=== PATIENT | male | born 1940 | race Two or more races ===

== ENCOUNTER 2022-11-21 07:28 | Day surgery (SDC) | payer OTHER ==
[~2022-11-21] VITALS: Ht 162.6 cm; Wt 86.2 kg
[2022-11-21] VITALS (12 sets, daily range): BP systolic 111–143; BP diastolic 67–84
[~2022-11-21 07:28] MED LIST: AMLO-496 PO; ASPI-498 PO; ATOR40TA52 PO; CHOL100079 OR; CINN500C7 PO; DOCU-80 PO; LISI-707 PO; METO25TA93 PO; MULT-775 OR; NITR0.4S29 SL; TAMS0.4C36 PO
[2022-11-21] MEDS ORDERED: IODIXANOL 320MG/ML 100ML BTL IV ONE ×2 (07:42→08:30)
[2022-11-21] MEDS ORDERED: LIDOCAINE 2%HCL (LOCAL ANESTH.) INJ 20ML MDV ONE (07:42)
[2022-11-21] MEDS ORDERED: fentaNYL CITRATE 100 MCG/2 ML VL ONE (08:06)
[2022-11-21] MEDS ORDERED: HEPARIN SODIUM (PORCINE) 5000 UNITS/ML 1ML VIAL ONE (08:06)
[2022-11-21] MEDS ORDERED: ANGIOMAX 250 MG VIAL IV ONE (08:06)
[2022-11-21] MEDS ORDERED: VERAPAMIL 2.5MG/ML INJ 2ML VIAL IV ONE (08:06)
[2022-11-21] MEDS ORDERED: MIDAZOLAM HCL 2MG/2ML 2ml VIAL (1mg/ml) ONE (08:07)
[2022-11-21] MEDS ORDERED: SODIUM CHL 0.9% 50 ML ONE ×2 (08:07→08:09)
[2022-11-21] MEDS ORDERED: NITROGLYCERIN 5MG/ML 10ML VIAL IV ONE (08:09)
[2022-11-21] MEDS ORDERED: ASPirin 325 MG TAB ONE (09:01)
[2022-11-21] MEDS ORDERED: TICAGRELOR 90 MG TAB ONE (09:01)
== END 2022-11-21 12:47 | disposition home or self-care (01) ==
LOC: CATH 07:28
PROVIDERS: ATTEND Internal Medicine Cardiovascular Disease
DX: I25.10 Atherosclerotic heart disease of native coronary artery without angina pectoris (principal); R94.39 Abnormal result of other cardiovascular function study; Z20.822 Contact with and (suspected) exposure to COVID-19; I10 Essential (primary) hypertension; E78.5 Hyperlipidemia, unspecified; Z79.899 Other long term (current) drug therapy; N40.0 Benign prostatic hyperplasia without lower urinary tract symptoms; Z87.891 Personal history of nicotine dependence
CPT/HCPCS: 93458; C1769; C1887; C9600; J0583; J1644; J2250; J3010; J3490; Q9967; U0003

== ENCOUNTER 2025-05-17 09:55 | Inpatient (IN) | payer OTHER ==
[~2025-05-17] VITALS: Ht 165.1 cm; Wt 87.3 kg
[2025-05-17] VITALS (8 sets, daily range): BP systolic 97–149; BP diastolic 67–81; PULSE 60–74; RESP 14–19; TEMP 97–98; O2SAT 94–98
[~2025-05-17 09:55] MED LIST changes: -AMLO-496 PO; +AMLO1TAB23 PO; -TAMS0.4C36 PO; +TAMS0.4C39 PO
[2025-05-17] MEDS: IODIXANOL 320MG/ML 100ML BTL IV ONE ×3 (12:02→18:13)
[2025-05-17] MEDS: HEPARIN IN NS 1000Units/500mL 1,500 ML ONE ×2 (12:02→13:13)
[2025-05-17] MEDS: LIDOCAINE 2%HCL (LOCAL ANESTH.) INJ 20ML MDV ONE (13:08)
[2025-05-17] MEDS: fentaNYL CITRATE 100 MCG/2 ML VL ONE ×2 (13:08→17:30)
[2025-05-17] MEDS: MIDAZOLAM HCL 2MG/2ML 2ml VIAL (1mg/ml) ONE ×2 (13:08→17:30)
[2025-05-17] MEDS: SODIUM CHL 0.9% 50 ML ONE ×2 (15:37→16:14)
[2025-05-17] MEDS: ANGIOMAX 250 MG VIAL IV ONE ×2 (15:37→16:14)
[2025-05-17] MEDS: CLOPIDOGREL BISULFATE 75 MG TAB ONE (19:04)
--- NOTE | 2025-05-17 20:17 | DVHOP2 ---
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 These include but are not limited to complications of anesthesia, postoperative infection, incomplete relief of symptoms, recurrence of symptoms, damage to blood vessels, nerves and tendons, deep venous thrombosis, pulmonary embolism and possible need for repeat surgery in the future. Complications: No complications Findings: Occlusion of right superficial femoral artery. 99% stenosis of the left iliac. Significant stenosis of left superficial femoral artery. Successful angioplasty and stenting of superficial femoral artery of the right lower extremity. Indications for Surgery: Claudication Name of Procedure Performed Angiographic evaluation of the lower extremities. PEDAL ASSEMBLER and stenting of chronically occluded right superficial femoral artery. Procedure Details Procedure Details: Prior full informed consent obtained the patient was prepped and draped in usual fashion followed by placement of a six Tristanian sheath into the left femoral artery under fluoroscopic and ultrasound guidance. We then placed a rim catheter after performing angiography of the left iliac and superficial femoral artery. We placed a advantage wire into the aorta from this sheath and placed a destination sheath seven Tristanian in size after obtaining runoff contralaterally of the right iliac and lower extremity. We then proceeded with angioplasty as will be delineated. Angiographic evaluation reveals severe stenosis of the left mid external iliac. Severe stenosis of the proximal left superficial femoral artery of about 95+%. Flow from the profunda to the distal SFA of the left lower extremity. There was 100% stenosis of the right superficial femoral artery with reconstitution of flow via collaterals from the right profunda into the distal superficial femoral artery above Theo's canal. Single-vessel runoff from popliteal tibioperoneal trunk and peroneal artery to the ankle. Occluded anterior and posterior tibial arteries. With a rim catheter in place we placed an advantage wire into the profunda and subsequently placed a seven Tristanian destination sheath in the common femoral artery contralaterally. We then placed several wires and catheters in an attempt to open the right superficial femoral artery. A Terumo 035 and 018 angled and straight Navicross catheters were used with several different wires including Prolia 12 and Confianza wires as well as 018 V18 wires. We finally obtained access into the distal cap after breaking through with a Confianza wire. We then placed an 014 choice PT extra-support wire and placed a chocolate balloon and dilated proximal to distal. We were then able to pass an 035 soft angled glide into the distal popliteal of the right lower extremity breaking thr ough the distal cap of the occluded SFA. We then stented with a seven by 120 [place] scientific self expanding stent. Proximal to that in the proximal superficial femoral artery we placed a seven by one hundred cm stent. We then placed a7 x 40 [place] scientific self expanding stent at this level. We post dilated with a7 mm x 100 mm balloon distally and proximally. There was notably increased flow without thrombus formation and/or dissection. There was brisk flow to the ankle. Patient tolerated the procedure well there were no complications. An Angio-Seal device was used to close the left femoral artery. A staged procedure will be performed of the left iliac and lower extremity within 2-3 weeks. 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 Severe peripheral vascular disease involving the left iliac and left superficial femoral artery as well. Recommendations: A staged procedure in the future for the left iliac and superficial femoral artery. Condition Good Disposition Still a Patient Date of Service: May 17, 2025 Billing Provider: HAZEL JEFFREY Sr., MD Cardiology Common Codes: [id number] INP/OBS CARE (High) Peripheral Add ons: [id number] AND ANGIOPLASTY, [id number]-KJFAVUM STENT W /ANGPLASTY HAZEL JEFFREY Sr., MD May 17, 2025 20:17
[2025-05-17] MEDS ORDERED: HYDROcodone-ACET 5/325MG TAB PO PRN (20:30)
[2025-05-18] VITALS (7 sets, daily range): BP systolic 117–144; BP diastolic 72–85; PULSE 70–83; RESP 16–18; TEMP 36.9; O2SAT 96–98
[2025-05-18] MEDS: CLOPIDOGREL BISULFATE 75 MG TAB PO SCH (09:29)
--- NOTE | 2025-05-18 12:12 | DVHPN2 ---
Consult Progress Note Subjective Other Systems: Patient in atrial fibrillation on phototypesetting equipment monitor Denies any cardiac symptoms Objective vital signs Vital Sign Date Time Temp Pulse Resp B/P (MAP) Pulse Ox O2 Delivery O2 Flow Rate FiO2 05/18/25 09:56 98.6 73 18 117/82 (94) 97 98.6 05/18/25 08:00 Room Air* 0 21 Total Intake and Output 05/17/25 05/17/25 05/18/25 15:00 23:00 07:00 Intake Total 0 ml Balance 0 ml medications Current Medications Medications Dose Ordered Sig/Lane Route Start Time Stop Time Status Last Admin Dose Admin Clopidogrel Bisulfate 75 mg DAILY PO 05/18/25 10:00 05/18/25 09:29 75 MG Aspirin 81 mg DAILY PO 05/18/25 10:00 05/18/25 09:29 81 MG Acetaminophen/ Hydrocodone Bitart 1 tab Q4HPRN PRN PO 05/17/25 20:30 Examination: GENERAL:Normal, LUNGS:Normal, CVS:Normal, NEURO:Normal Problem List/Assessment/Plan Problem List/Assessment/Plan Severe peripheral vascular disease s/p PTCA and stenting of chronically occluded right superficial femoral artery Coronary artery disease s/p PTCA x 1 SILVIA Atrial fibrillation, ?Newly diagnosed Hypertension Dyslipidemia Hypokalemia BPH Plan/recommendations (Dr. Jeffrey): Case discussed with . The patient underwent a peripheral angiogram with PRODUCTION CONTROL EXPEDITER and stenting of a chronically occluded right superficial femoral artery. Left groin incision site with a notable bruise, but no active bleeding or hematoma noted. During exam, patient noted to have irregular heart beat. A twelve lead electrocardiogram was obtained and revealed atrial fibrillation with controlled rate. The patient denies any previous history of arrhythmias. Given recent stent placement and new onset arrhythmia, we will recommend for the patient to continue with Plavix and initiate Eliquis. [id number] VASc score: 4 points, HAS-BLED score: 2 points. Continue with lipid-lowering agent and beta- meron. The patient will follow up with xm1 tank driver for a staged procedure involving the left iliac and superficial femoral artery. There is no further inpatient cardiac workup indicated at this time. Patient to follow up with Cardiology in the outpatient setting within 1-2 weeks post discharge. Thank you for allowing us to care for this patient. Please call with any questions or concerns. This medical document was created using an electronic medical record system with voice recognition software and computerized dictation system. Although this document has been carefully reviewed, there might still be some phonetic and typographical errors. Occasional wrong-word or ``sound-alike substitutions may have occurred due to the inherent limitations of voice recognition software. These areas are purely typographical due to imperfections of the software programs and do not reflect any compromise in the patient's medical care. Please read the chart carefully and recognize, using context, where these substitutions have occurred. Plan discussed with: Patient Date of Service: May 18, 2025 Billing Provider: WENDY MCKAY Common Visit Codes: [id number] INP/OBS CARE(HIGH) WENDY MCKAY May 18, 2025 12:12
[2025-05-18 13:33] LABS: Hematocrit 45.2 % (41.0-53.0); Hemoglobin 15.5 g/dL (13.5-17.5); Mean Corpuscular Hemoglobin 30.5 pg (28.0-32.0); Mean Corpuscular Volume 88.6 fL (80.0-100.0); Nucleated Red Blood Cells % 0.1 %
[2025-05-18 13:39] LABS: Anion Gap 10 (5-15); Carbon Dioxide 25 mmol/L (20-31); Chloride 101 mmol/L (98-107); Sodium 136 mmol/L (136-145)
[2025-05-18 13:40] LABS: Calcium 9.2 mg/dL (8.7-10.4)
[2025-05-18 13:42] LABS: Potassium 3.4 mmol/L (3.5-5.1)
[2025-05-18 13:45] LABS: BUN/Creatinine Ratio 11.3 (10.0-20.0); Blood Urea Nitrogen 12 mg/dL (9-23); Glucose 143 mg/dL (74-106); Magnesium 1.9 mg/dL (1.6-2.6)
[2025-05-18] MEDS: POTASSIUM CHL 20 Meq TABLET PO ONE (18:28)
--- NOTE | 2025-05-18 19:02 | DVHHP2 ---
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 Subsequently patient is admitted and hospitalist is consulted for management while he is in the hospital. Currently patient is stable postop. Denies any pain. Other review of systems reviewed normal. Cardiovascular: AFIB, HTN, hyperipidemia Renal/: Benign prostatic enlarg. Past Surgical History: None Family History: Hypertension Lives: with Family Review of Systems Review of Systems No chest pain or shortness for breath. No fevers chills or sweats. Other review of systems reviewed normal Allergies: Coded Allergies: NO KNOWN ALLERGIES (Unverified , 05/12/25) Medications Current Medications Medications Dose Ordered Sig/Lane Route Start Time Stop Time Status Last Admin Dose Admin Clopidogrel Bisulfate 75 mg DAILY PO 05/18/25 10:00 05/18/25 09:29 75 MG Acetaminophen/ Hydrocodone Bitart 1 tab Q4HPRN PRN PO 05/17/25 20:30 Apixaban 5 mg BID PO 05/18/25 22:00 Atorvastatin Calcium 40 mg HS PO 05/18/25 22:00 Metoprolol Succinate 25 mg DAILY PO 05/19/25 10:00 Exam Vital Signs Vital Signs Date Time Temp Pulse Resp B/P (MAP) Pulse Ox O2 Delivery O2 Flow Rate FiO2 05/18/25 18:07 36.9 05/18/25 17:00 83 18 127/72 (90) 97 05/18/25 08:00 Room Air* 0 21 General Appearance: Alert, Oriented X3, No acute distress Cardiovascular: Regular rate, Normal S1, Normal S2, No murmurs Abdominal: Normal bowel sounds, Soft, No tenderness Extremities: No clubbing, No edema, Normal pulses Neuro: Normal gait, Normal speech Psych/Mental Status: Mood NL Labs/Xrays Labs Test 05/18/25 13:20 Range/Units White Blood Count 12.0 H 4.4-10.8 10^3/uL Red Blood Count 5.10 4.5-5.90 10^6/uL Hemoglobin 15.5 13.5-17.5 g/dL Hematocrit 45.2 41.0-53.0 % Mean Corpuscular Volume 88.6 80.0-100.0 fL Mean Corpuscular Hemoglobin 30.5 28.0-32.0 pg Mean Corpuscular Hemoglobin Concent 34.4 32.0-36.0 g/dL Red Cell Distribution Width 14.1 11.8-14.3 % Platelet Count 183 140-450 10^3/uL Mean Platelet Volume 8.2 6.9-10.8 fL Neutrophils (%) (Auto) 77.2 37.0-80.0 % Lymphocytes (%) (Auto) 13.4 10.0-50.0 % Monocytes (%) (Auto) 8.7 0.0-12.0 % Eosinophils (%) (Auto) 0.1 0.0-7.0 % Basophils (%) (Auto) 0.6 0.0-2.0 % Neutrophils # (Auto) 9.3 H 1.6-8.6 10 ^3/uL Lymphocytes # (Auto) 1.6 0.4-5.4 10 ^3/uL Monocytes # (Auto) 1.0 0-1.3 10 ^3/uL Eosinophils # (Auto) 0 0-0.8 10 ^3/uL Basophils # (Auto) 0.1 0-0.2 10 ^3/uL Nucleated Red Blood Cells 0.1 % Sodium Level 136 136-145 mmol/L Potassium Level 3.4 L 3.5-5.1 mmol/L Chloride Level 101 98-107 mmol/L Carbon Dioxide Level 25 20-31 mmol/L Anion Gap 10 5-15 Blood Urea Nitrogen 12 9-23 mg/dL Creatinine 1.06 0.700-1.30 mg/dL Glomerular Filtration Rate Calc 70 >90 mL/min BUN/Creatinine Ratio 11.3 10.0-20.0 Serum Glucose 143 H 74-106 mg/dL Calcium Level 9.2 8.7-10.4 mg/dL Magnesium Level 1.9 1.6-2.6 mg/dL SEPSIS Sepsis Screen Physician Orders Apixaban (Eliquis) (05/18/25 22:00) Atorvastatin (Lipitor) (05/18/25 22:00) Metoprolol Xl Succinate (Toprol Xl) (05/19/25 10:00) Vital Signs Date Time Temp Pulse Resp B/P (MAP) Pulse Ox O2 Delivery O2 Flow Rate FiO2 05/18/25 18:07 36.9 05/18/25 17:00 98.5 83 18 127/72 (90) 97 98.5 05/18/25 14:42 98.4 79 18 129/84 (99) 98 98.4 Laboratory Tests Test 05/18/25 13:20 White Blood Count 12.0 10^3/uL (4.4-10.8) H Medications Medications Dose Ordered Sig/Lane Route Start Time Stop Time Status Last Admin Dose Admin Aspirin 81 mg DAILY PO 05/18/25 10:00 05/18/25 12:15 DC 05/18/25 09:29 81 MG Clopidogrel Bisulfate 75 mg DAILY PO 05/18/25 10:00 05/18/25 09:29 75 MG Potassium Chloride 40 meq ONCE ONCE PO 05/18/25 14:45 05/18/25 16:44 DC 05/18/25 18:28 40 MEQ Assessment/Plan Assessment/Plan Paroxysmal atrial fibrillation Peripheral arterial disease Atherosclerotic coronary artery diseaseSevere peripheral vascular disease s/p PTCA and stenting of chronically occluded right superficial femoral artery Coronary artery disease s/p PTCA x 1 SILVIA Atrial fibrillation, ?Newly diagnosed Hypertension Dyslipidemia Hypokalemia BPH Patient is started on antiplatelet therapy/anticoagulation with the Plavix and Eliquis. Continue other home medications as he is on. Patient is clinically doing well. He is stable. Continue present management and once Cardiology re- evaluate and further recommendations can be discharged home. Plan discussed with: Other JENI PEREA MD May 18, 2025 19:02
[2025-05-18] MEDS ORDERED: CLOP75TA70 PO (19:03)
[2025-05-18] MEDS ORDERED: APIX5TAB PO (19:03)
[2025-05-18] MEDS ORDERED: ATORVASTATIN 20 MG TAB PO SCH (22:00)
[2025-05-18] MEDS ORDERED: APIXABAN 5 MG TAB PO SCH (22:00)
--- NOTE | 2025-05-19 09:31 | ECG ---
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
[2025-05-19] MEDS ORDERED: METOPROLOL SUCCINATE XL 50 MG TAB PO SCH (10:00)
== END 2025-05-18 20:30 | disposition home or self-care (01) | DRG 254 ==
LOC: CATH 09:55 → OVERFLOW 18:21 → TELE-WESTW 20:40
PROVIDERS: ADMIT Internal Medicine; ATTEND Internal Medicine
PROC: 047K3EZ Dilation of Right Femoral Artery with Two Intraluminal Devices, Percutaneous Approach (ICD-10-PCS; principal; 2025-05-17)
PROC: B41FYZZ Fluoroscopy of Right Lower Extremity Arteries using Other Contrast (ICD-10-PCS; 2025-05-17)
DX: I73.9 Peripheral vascular disease, unspecified (principal); I25.10 Atherosclerotic heart disease of native coronary artery without angina pectoris; I10 Essential (primary) hypertension; E78.5 Hyperlipidemia, unspecified; E87.6 Hypokalemia; N40.0 Benign prostatic hyperplasia without lower urinary tract symptoms; I48.0 Paroxysmal atrial fibrillation; Z82.49 Family history of ischemic heart disease and other diseases of the circulatory system; Z98.61 Coronary angioplasty status; Z79.899 Other long term (current) drug therapy
CPT/HCPCS: 36415; 37226; 75710; 80048; 83735; 85025; 93005; 99152; C1725; C1769; C1876; G0378; J2250; Q9967

== ENCOUNTER 2025-07-12 10:52 | Day surgery (SDC) | payer OTHER ==
[2025-07-12] VITALS (9 sets, daily range): BP systolic 126–156; BP diastolic 85–104; PULSE 73–104; RESP 10–27; TEMP 97.1; O2SAT 93–98
[~2025-07-12] VITALS: Ht 167.6 cm; Wt 85.3 kg
[~2025-07-12 10:52] MED LIST changes: -AMLO1TAB23 PO; +APIX5TAB PO; -ASPI-498 PO; +ATOR20TA50 PO; -ATOR40TA52 PO; +CLOP75TA70 PO; +FINA5TAB4 PO; +TADA5TAB11 PO; -TAMS0.4C39 PO
[2025-07-12] MEDS ORDERED: IODIXANOL 320MG/ML 100ML BTL IV ONE (14:06)
[2025-07-12] MEDS ORDERED: HEPARIN IN NS 1000Units/500mL 1,500 ML ONE (14:06)
[2025-07-12] MEDS ORDERED: ANGIOMAX 250 MG VIAL IV ONE (14:20)
[2025-07-12] MEDS ORDERED: MIDAZOLAM HCL 2MG/2ML 2ml VIAL (1mg/ml) ONE (14:21)
[2025-07-12] MEDS ORDERED: SODIUM CHL 0.9% 0 ML ONE (14:21)
[2025-07-12] MEDS ORDERED: LIDOCAINE 2%HCL (LOCAL ANESTH.) INJ 20ML MDV ONE (14:21)
[2025-07-12] MEDS ORDERED: fentaNYL CITRATE 100 MCG/2 ML VL ONE (14:21)
--- NOTE | 2025-07-12 15:11 | DVHOP2 ---
Operative Report - 2 Report Details Date: 07/12/25 Preop Diagnosis: Peripheral vascular disease Postop Diagnosis: Peripheral vascular disease Surgeon: Hazel Jeffrey MD Anesthesiologist: Conscious sedation Anesthesia: Mac, Local Consent: The patient was informed of the risks and benefits of the procedure. These include but are not limited to complications of anesthesia, postoperative infection, incomplete relief of symptoms, recurrence of symptoms, damage to blood vessels, nerves and tendons, deep venous thrombosis, pulmonary embolism and possible need for repeat surgery in the future. Complications: No complications Findings: Moderate PVD Indications for Surgery: Claudication Name of Procedure Performed Peripheral angiographic evaluation Procedure Details Procedure Details: Prior local anesthesia with 2% lidocaine to the right groin and full informed consent obtained patient was prepped and draped in usual fashion followed by placement of a six Hungarian sheath into the right femoral artery through which a six Hungarian catheter was placed into the femoral artery and a rim catheter placed into the iliac and contralaterally placed under fluoroscopic guidance. Angiographic evaluation was then performed lower extremity. We obtained digital subtraction angiographic evaluations of both lower extremities. Angiography reveals a tortuous right common iliac with moderate calcification in its proximal portion the femoral artery appears to be showing moderate plaquing without critical lesions. The left iliac arising from the distal aorta has a proximal stenosis of about 20-30%. There is a in occlusion of the left internal iliac. The external iliac proximally has a 60-70% stenosis. The common femoral is within normal limits. The proximal superficial femoral artery has a 40 50% proximal stenosis. A 20-30% stenosis prior to the level of the left popliteal.. There is moderate tibioperoneal disease. There was an occlusion of the left anterior tibial with the peroneal and posterior tibial arteries providing flow to the ankle and foot. No critical lesions noted. The right iliac also shows moderate calcification plaquing. No critical lesions present. The internal iliac is present. Moderate plaquing of the proximal superficial femoral artery. There is a stent in the proximal superficial femoral artery. The distal SFA has a stent as well as the proximal SFA. The popliteal is normal. Mild plaquing. The tibioperoneal trunk on the right gives off the peroneal artery flow ankle. The anterior and posterior tibial arteries appear to be occluded. Impression: Moderate peripheral arterial disease with the occlusion of the anterior and posterior tibial arteries of the right lower extremity and anterior tibial artery of the left lower extremity however good flow to the feet bilaterally. Patent stents in superficial femoral artery of the right lower e xtremity. Recommendations: Continue risk factor modification. No significant procedures needed at this time otherwise. We will continue to monitor for peripheral vascular disease standpoint continue risk factor modification. End of dictation Condition Good Disposition Home Date of Service: Jul 12, 2025 Billing Provider: HAZEL JEFFREY Sr., MD Cardiology Common Codes: [id number] INP/OBS CARE (High) (Angiographic evaluation of the bilateral iliacs and runoffs to the lower extremities bilateral.) HAZEL JEFFREY Sr., MD Jul 12, 2025 15:11
== END 2025-07-12 17:08 | disposition home or self-care (01) ==
LOC: CATH 10:52
PROVIDERS: ATTEND Internal Medicine
DX: I70.213 Atherosclerosis of native arteries of extremities with intermittent claudication, bilateral legs (principal); Z79.899 Other long term (current) drug therapy; Z80.9 Family history of malignant neoplasm, unspecified
CPT/HCPCS: 36246; 75716; C1760; C1769; C1894; J1644; J2250; J3010; Q9967; 36245; 99152; 99153